=== PATIENT | male | born 1995 | race Two or more races ===

== ENCOUNTER 2021-12-08 22:45 | Emergency (ER) | payer MEDICAID ==
[~2021-12-08] VITALS: Ht 177.8 cm; Wt 68.2 kg
[2021-12-09 02:38] LABS: EOSINOPHILS % (AUTO) 7.9 % (1.0-6.0); HEMATOCRIT 40.2 % (41-53); HEMOGLOBIN 13.7 g/dL (13.5-17.5); LYMPHOCYTES # (AUTO) 2.5 K/uL (1.0-4.8); LYMPHOCYTES % (AUTO) 29.5 % (22.0-44.0); MEAN CORPUSCULAR HEMOGLOBIN 29.7 pg (26.0-34.0); MEAN CORPUSCULAR HGB CONC 34.1 G/dL (31.0-37.0); MEAN CORPUSCULAR VOLUME 87 fL (80-100); MONOCYTES # (AUTO) 0.9 K/uL (0.1-1.0); NEUTROPHILS # (AUTO) 4.4 K/uL (1.8-7.7); NEUTROPHILS % (AUTO) 51.6 % (40.0-70.0); PLATELET COUNT (AUTO) 290 K/uL (150-450); RED BLOOD CELL COUNT(AUTO) 4.61 MIL/uL (4.50-5.90); RED CELL DISTRIBUTION WIDTH 13.4 % (11.5-14.5)
[2021-12-09 02:59] LABS: ANION GAP 6 mmol/L (8-16); CALCIUM, TOTAL 8.4 mg/dL (8.8-10.5); CARBON DIOXIDE 30 mmol/L (22-29); CHLORIDE 105 mmol/L (98-107); CREATININE 0.99 mg/dL (0.60-1.30); GLOMERULAR FILTR. RATE CALC > 60 mL/min (>60); GLUCOSE,RANDOM 104 mg/dL (70-110); POTASSIUM 3.3 mmol/L (3.5-5.1); SODIUM SERUM 141 mmol/L (136-145); UREA NITROGEN, BLOOD 14 mg/dL (7-18)
[2021-12-09 03:05] LABS: ALANINE AMINOTRANSFERASE 40 U/L (12-78); ALBUMIN 3.4 g/dL (3.4-5.0); ALKALINE PHOSPHATASE 114 U/L (46-116); ASPARTATE AMINOTRANSFERASE 25 U/L (15-37); BILIRUBIN,TOTAL 0.2 mg/dL (0.1-1.0); TOTAL PROTEIN, SERUM 6.5 g/dL (6.4-8.2)
[2021-12-09 03:27] VITALS: BP 110/62
== END 2021-12-09 03:36 | disposition home or self-care (01) ==
LOC: EMS 22:49
DX: M79.18 Myalgia, other site (principal); F12.90 Cannabis use, unspecified, uncomplicated; J45.909 Unspecified asthma, uncomplicated; F31.9 Bipolar disorder, unspecified; F17.210 Nicotine dependence, cigarettes, uncomplicated
CPT/HCPCS: 80053; 85025; 99283

== ENCOUNTER 2021-12-14 22:40 | Inpatient (IN) | payer MEDICAID ==
[~2021-12-14] VITALS: Ht 175.3 cm; Wt 68.0 kg
[2021-12-14 23:56] LABS: BASOPHILS % (AUTO) 0.7 % (0.0-2.0); EOSINOPHILS % (AUTO) 5.1 % (1.0-6.0); HEMATOCRIT 39.6 % (41-53); HEMOGLOBIN 13.4 g/dL (13.5-17.5); LYMPHOCYTES # (AUTO) 3.4 K/uL (1.0-4.8); LYMPHOCYTES % (AUTO) 40.3 % (22.0-44.0); MEAN CORPUSCULAR HEMOGLOBIN 29.3 pg (26.0-34.0); MEAN CORPUSCULAR HGB CONC 33.8 G/dL (31.0-37.0); MEAN CORPUSCULAR VOLUME 87 fL (80-100); MONOCYTES # (AUTO) 0.7 K/uL (0.1-1.0); MONOCYTES % (AUTO) 8.4 % (2.0-9.0); NEUTROPHILS # (AUTO) 3.9 K/uL (1.8-7.7); NEUTROPHILS % (AUTO) 45.5 % (40.0-70.0); PLATELET COUNT (AUTO) 303 K/uL (150-450); RED BLOOD CELL COUNT(AUTO) 4.58 MIL/uL (4.50-5.90); RED CELL DISTRIBUTION WIDTH 13.2 % (11.5-14.5)
[2021-12-15 00:09] LABS: ALANINE AMINOTRANSFERASE 44 U/L (12-78); ALBUMIN 3.6 g/dL (3.4-5.0); ALKALINE PHOSPHATASE 100 U/L (46-116); ANION GAP 8 mmol/L (8-16); ASPARTATE AMINOTRANSFERASE 34 U/L (15-37); BILIRUBIN,TOTAL 0.2 mg/dL (0.1-1.0); CALCIUM, TOTAL 8.6 mg/dL (8.8-10.5); CARBON DIOXIDE 30 mmol/L (22-29); CHLORIDE 104 mmol/L (98-107); CREATININE 1.01 mg/dL (0.60-1.30); GLOMERULAR FILTR. RATE CALC > 60 mL/min (>60); GLUCOSE,RANDOM 106 mg/dL (70-110); POTASSIUM 4.2 mmol/L (3.5-5.1); SODIUM SERUM 142 mmol/L (136-145); TOTAL PROTEIN, SERUM 6.8 g/dL (6.4-8.2); UREA NITROGEN, BLOOD 20 mg/dL (7-18)
[2021-12-15 00:34] LABS: ACETAMINOPHEN < 2 mcg/mL (10-30)
[2021-12-15 01:00] LABS: SALICYLATE 0.9 mg/dL (2.8-20.0)
[2021-12-15 02:16] LABS: COVID AG,FIA SOURCE NASOPHARYNGEAL
[2021-12-15 02:20] LABS: APPEARANCE,URINE CLEAR (CLEAR); BILIRUBIN,URINE NEGATIVE (NEGATIVE); GLUCOSE, URINE (UA) NEGATIVE (NEGATIVE); KETONES,URINE NEGATIVE (NEGATIVE); LEUKOCYTE ESTERASE ,URINE NEGATIVE (NEGATIVE); NITRATE,URINE NEGATIVE (NEGATIVE); OCCULT BLOOD,URINE NEGATIVE (NEGATIVE); PH,URINE 7.5 (5.0-8.0); PROTEIN,URINE NEGATIVE (NEGATIVE)
[2021-12-15 02:26] LABS: AMPHET/METH SCREEN,URINE POSITIVE (NEGATIVE); BARBITURATE SCREEN, URINE NEGATIVE (NEGATIVE); BENZODIAZEPINES SCREEN,URINE NEGATIVE (NEGATIVE); CANNABINOID SCREEN,URINE POSITIVE (NEGATIVE); COCAINE SCREEN,URINE NEGATIVE (NEGATIVE); METHADONE SCREEN, URINE NEGATIVE (NEGATIVE); OPIATE SCREEN,URINE NEGATIVE (NEGATIVE)
[2021-12-15 05:31] LABS: PHENCYCLIDINE SCREEN,URINE NEGATIVE (NEGATIVE)
[2021-12-15] MEDS ORDERED: NICOTINE 14 MG/24 HOUR PATCH TD PRN (09:45)
[2021-12-15] MEDS ORDERED: ONDANSETRON HCL 4 MG TABLET PO PRN (09:45)
[2021-12-15] MEDS ORDERED: PETROLATUM,WHITE 28 GM JELLY TP PRN (09:45)
[2021-12-15] MEDS ORDERED: GuaiFENesin/D-METHORPHAN [SUGAR-FREE] 200-20MG/10 ML SYRUP UDCUP PO PRN (09:45)
[2021-12-15] MEDS ORDERED: MAGNESIUM HYDROXIDE SUSPENSION 30 ML UDCUP PO PRN (09:45)
[2021-12-15] MEDS ORDERED: ACETAMINOPHEN 325 MG TABLET PO PRN (09:45)
[2021-12-15] MEDS ORDERED: DOCUSATE SODIUM 100 MG CAPSULE PO PRN (09:45)
[2021-12-15] MEDS ORDERED: CloNIDine HCL 0.1 MG TABLET PO PRN (09:45)
[2021-12-15] MEDS ORDERED: MAG HYDROX/AL HYDROX/SIMETH ES 30 ML SUSPENSION UDCUP PO PRN (09:45)
[2021-12-15] MEDS ORDERED: IBUPROFEN 400 MG TABLET PO PRN (09:45)
[2021-12-15] MEDS ORDERED: ALBUTEROL SULFATE HFA 90 MCG/PUFF 8 GM INHALER IH PRN (09:45)
[2021-12-15] MEDS ORDERED: LOPERAMIDE HCL 2 MG CAPSULE PO PRN (09:45)
[2021-12-16 01:33] LABS: CHOL/HDL RATIO 1.8 (4.2-7.3); CHOLESTEROL 140 mg/dL (131-200); HDL CHOLESTEROL 76 mg/dL (40-60); LDL CHOL (CALC.) 48 mg/dL (0-130); TRIGLYCERIDES 78 mg/dL (15-150)
[2021-12-16 12:26] VITALS: BP 118/69
[2021-12-16] MEDS ORDERED: PNEUMOCOCCAL VACCINE POLYVALENT 0.5 ML VIAL [PPSV23] IM. ONE (13:45)
[2021-12-16] MEDS: LORazepam 2 MG TABLET PO PRN (16:30)
[2021-12-16] MEDS: HALOPERIDOL 5 MG TABLET PO PRN (16:30)
[2021-12-17 08:10] VITALS: BP 134/72
[2021-12-17] MEDS: RisperiDONE 1 MG TABLET PO SCH ×2 (10:00→21:00)
[2021-12-17 16:24] VITALS: BP 109/66
[2021-12-18] MEDS: LORazepam 2 MG TABLET PO PRN ×2 (02:02→17:48)
[2021-12-18] MEDS: ZOLPIDEM TARTRATE 10 MG TABLET PO PRN (02:02)
[2021-12-18 02:09] VITALS: BP 105/65
[2021-12-18] MEDS: RisperiDONE 1 MG TABLET PO SCH ×3 (09:00→20:26)
[2021-12-18 10:21] VITALS: BP 169/75
[2021-12-18] MEDS: HALOPERIDOL 5 MG TABLET PO PRN (17:48)
[2021-12-18 17:57] VITALS: BP 155/76
[2021-12-19 08:30] VITALS: BP 150/79
[2021-12-19] MEDS: RisperiDONE 1 MG TABLET PO SCH ×2 (09:00→21:00)
[2021-12-19 15:54] LABS: APPEARANCE,URINE CLEAR (CLEAR); BILIRUBIN,URINE NEGATIVE (NEGATIVE); GLUCOSE, URINE (UA) NEGATIVE (NEGATIVE); KETONES,URINE NEGATIVE (NEGATIVE); LEUKOCYTE ESTERASE ,URINE NEGATIVE (NEGATIVE); NITRATE,URINE NEGATIVE (NEGATIVE); OCCULT BLOOD,URINE NEGATIVE (NEGATIVE); PH,URINE 7.5 (5.0-8.0); PROTEIN,URINE NEGATIVE (NEGATIVE); UROBILINOGEN,URINE 0.2 mg/dL (<=1.0)
[2021-12-19 15:58] LABS: BACTERIA,URINE Rare /HPF (None Seen); RBC,URINE None Seen /HPF (0-2); WBC,URINE 0-2 /HPF (0-5)
[2021-12-19 16:00] VITALS: BP 138/76
[2021-12-19 16:01] LABS: AMPHET/METH SCREEN,URINE NEGATIVE (NEGATIVE); BARBITURATE SCREEN, URINE NEGATIVE (NEGATIVE); BENZODIAZEPINES SCREEN,URINE NEGATIVE (NEGATIVE); CANNABINOID SCREEN,URINE POSITIVE (NEGATIVE); COCAINE SCREEN,URINE NEGATIVE (NEGATIVE); METHADONE SCREEN, URINE NEGATIVE (NEGATIVE); OPIATE SCREEN,URINE NEGATIVE (NEGATIVE)
[2021-12-19 16:02] LABS: PHENCYCLIDINE SCREEN,URINE NEGATIVE (NEGATIVE)
[2021-12-19] MEDS: HALOPERIDOL 5 MG TABLET PO PRN (16:54)
[2021-12-19] MEDS: LORazepam 2 MG TABLET PO PRN (16:54)
[2021-12-20 00:15] VITALS: BP 131/66
[2021-12-20] MEDS: ZOLPIDEM TARTRATE 10 MG TABLET PO PRN (00:30)
[2021-12-20 07:06] LABS: HIV 1-2 SCREEN 4TH GEN W/RFLX Non Reactive (Non Reactive)
[2021-12-20] MEDS ORDERED: RISP1TAB98 PO (09:50)
== END 2021-12-20 12:45 | disposition home or self-care (01) | DRG 750 ==
LOC: EMS 22:40 → 3EI 12-16 02:00
PROVIDERS: ADMIT Psychiatry & Neurology Psychiatry; ATTEND Psychiatry & Neurology Psychiatry
DX: F25.0 Schizoaffective disorder, bipolar type (principal); F12.10 Cannabis abuse, uncomplicated; F15.10 Other stimulant abuse, uncomplicated; J45.909 Unspecified asthma, uncomplicated; F17.210 Nicotine dependence, cigarettes, uncomplicated; Z20.822 Contact with and (suspected) exposure to COVID-19; Z79.899 Other long term (current) drug therapy
CPT/HCPCS: 80053; 80061; 81001; 81003; 85025; 87389; 87491; 87591; 99285; G0480; G0481

== ENCOUNTER 2023-08-28 19:34 | Inpatient (IN) | payer MEDICAID ==
[~2023-08-28] VITALS: Ht 167.6 cm; Wt 79.4 kg
[~2023-08-28 19:34] MED LIST: RISP1TAB98 PO
[2023-08-28] MEDS ORDERED: TRAZ-184 PO (20:03)
[2023-08-28] MEDS ORDERED: OLAN2.5T29 PO (20:03)
[2023-08-28 20:23] LABS: BASOPHILS % (AUTO) 0.2 % (0.0-2.0); EOSINOPHILS % (AUTO) 1.9 % (1.0-6.0); HEMATOCRIT 42.7 % (41-53); HEMOGLOBIN 14.3 g/dL (13.5-17.5); LYMPHOCYTES # (AUTO) 1.5 K/uL (1.0-4.8); LYMPHOCYTES % (AUTO) 17.5 % (22.0-44.0); MEAN CORPUSCULAR HEMOGLOBIN 29.9 pg (26.0-34.0); MEAN CORPUSCULAR HGB CONC 33.5 G/dL (31.0-37.0); MEAN CORPUSCULAR VOLUME 89 fL (80-100); MONOCYTES # (AUTO) 0.7 K/uL (0.1-1.0); MONOCYTES % (AUTO) 7.9 % (2.0-9.0); NEUTROPHILS # (AUTO) 6.3 K/uL (1.8-7.7); NEUTROPHILS % (AUTO) 72.5 % (40.0-70.0); PLATELET COUNT (AUTO) 228 K/uL (150-450); RED BLOOD CELL COUNT(AUTO) 4.78 MIL/uL (4.50-5.90); RED CELL DISTRIBUTION WIDTH 12.9 % (11.5-14.5); WHITE BLOOD COUNT (AUTO) 8.7 K/uL (4.5-11.0)
[2023-08-28 20:24] LABS: COVID AG,FIA SOURCE NASAL SWAB
[2023-08-28] MEDS ORDERED: OLANZapine 5 MG TABLET PO ONE (20:30)
[2023-08-28] MEDS ORDERED: TraZODone HCL 50 MG TABLET PO ONE (20:30)
[2023-08-28 20:42] LABS: SARS-COV2 (COVID) ANTIGEN,FIA Negative (Negative)
[2023-08-28 20:43] LABS: ANION GAP 12 mmol/L (8-16); CALCIUM, TOTAL 8.8 mg/dL (8.8-10.5); CARBON DIOXIDE 25 mmol/L (22-29); CHLORIDE 104 mmol/L (98-107); GLOMERULAR FILTR. RATE CALC > 60 mL/min (>60); GLUCOSE,RANDOM 103 mg/dL (70-110); POTASSIUM 3.7 mmol/L (3.5-5.1); SODIUM SERUM 141 mmol/L (136-145); UREA NITROGEN, BLOOD 11 mg/dL (7-18)
[2023-08-28 20:49] LABS: ALANINE AMINOTRANSFERASE 42 U/L (12-78); ALKALINE PHOSPHATASE 112 U/L (46-116); ASPARTATE AMINOTRANSFERASE 72 U/L (15-37); BILIRUBIN,TOTAL 0.6 mg/dL (0.1-1.0); TOTAL PROTEIN, SERUM 7.2 g/dL (6.4-8.2)
[2023-08-28 21:33] LABS: ALCOHOL, BLOOD (SERUM) < 3 mg/dL (0-10)
[2023-08-29 20:48] VITALS: BP 124/71; PULSE 95; RESP 17; TEMP 98
[2023-08-29] MEDS ORDERED: PETROLATUM,WHITE 28 GM JELLY TP PRN (21:00)
[2023-08-29] MEDS ORDERED: MAGNESIUM HYDROXIDE SUSPENSION 30 ML UDCUP PO PRN (21:00)
[2023-08-29] MEDS ORDERED: ACETAMINOPHEN 325 MG TABLET PO PRN (21:00)
[2023-08-29] MEDS ORDERED: BENZOCAINE/MENTHOL LOZENGE PO PRN (21:00)
[2023-08-29] MEDS ORDERED: ALBUTEROL SULFATE HFA 90 MCG/PUFF 8 GM INHALER IH PRN (21:00)
[2023-08-29] MEDS ORDERED: IBUPROFEN 600 MG TABLET PO PRN (21:00)
[2023-08-29] MEDS ORDERED: LOPERAMIDE HCL 2 MG CAPSULE PO PRN (21:00)
[2023-08-29] MEDS ORDERED: ONDANSETRON HCL 4 MG TABLET PO PRN (21:00)
[2023-08-29] MEDS ORDERED: BACITRACIN 28 GM OINTMENT TP PRN (21:00)
[2023-08-29] MEDS ORDERED: CloNIDine HCL 0.1 MG TABLET PO PRN (21:00)
[2023-08-29] MEDS ORDERED: DOCUSATE SODIUM 100 MG CAPSULE PO PRN (21:00)
[2023-08-29] MEDS ORDERED: OMEPRAZOLE 20 MG CAPSULE PO PRN (21:00)
[2023-08-29] MEDS ORDERED: MAG HYDROX/AL HYDROX/SIMETH ES 30 ML SUSPENSION UDCUP PO PRN (21:00)
[2023-08-29 21:31] VITALS: BP 124/71; PULSE 95; RESP 17; TEMP 98; O2SAT 98
[2023-08-30 08:39] VITALS: BP 103/62; PULSE 60; RESP 18; TEMP 97.9; O2SAT 97
[2023-08-30] MEDS: LORazepam 2 MG TABLET PO PRN (17:30)
[2023-08-30] MEDS ORDERED: LORazepam 2 MG/ML VIAL ONE (18:05)
[2023-08-30] MEDS ORDERED: HALOPERIDOL LACTATE 5 MG/ML VIAL ONE (18:06)
[2023-08-30] MEDS ORDERED: DiphenhydrAMINE HCL 50 MG/ML VIAL ONE (18:06)
[2023-08-30] MEDS ORDERED: DiphenhydrAMINE HCL 50 MG/ML VIAL IM ONE (18:15)
[2023-08-30] MEDS ORDERED: LORazepam 2 MG/ML VIAL IM ONE (18:15)
[2023-08-30] MEDS ORDERED: HALOPERIDOL LACTATE 5 MG/ML VIAL IM ONE (18:15)
[2023-08-30 20:40] VITALS: BP 91/48; PULSE 88; RESP 17; TEMP 98; O2SAT 97
[2023-08-30] MEDS: OLANZapine 10 MG TABLET PO SCH (20:59)
[2023-08-30] MEDS: TraZODone HCL 100 MG TABLET PO SCH (20:59)
[2023-08-31 08:57] VITALS: BP 109/61; PULSE 69; RESP 20; TEMP 97.9; O2SAT 97
[2023-08-31] MEDS: LORazepam 2 MG TABLET PO PRN (19:34)
[2023-08-31 20:00] VITALS: BP 118/70; PULSE 98; RESP 18; TEMP 97.8; O2SAT 97
[2023-08-31] MEDS: TraZODone HCL 100 MG TABLET PO SCH (20:11)
[2023-08-31] MEDS: OLANZapine 10 MG TABLET PO SCH (20:11)
[2023-09-01] MEDS: LORazepam 2 MG TABLET PO PRN ×2 (08:17→16:54)
[2023-09-01 13:17] VITALS: BP 115/72; PULSE 75; RESP 17; TEMP 98; O2SAT 98
[2023-09-01] MEDS ORDERED: DiphenhydrAMINE HCL 50 MG/ML VIAL ONE (18:16)
[2023-09-01] MEDS ORDERED: HALOPERIDOL LACTATE 5 MG/ML VIAL ONE (18:16)
[2023-09-01] MEDS ORDERED: LORazepam 2 MG/ML VIAL ONE (18:16)
[2023-09-01] MEDS ORDERED: LORazepam 2 MG/ML VIAL IM ONE (18:30)
[2023-09-01] MEDS ORDERED: HALOPERIDOL LACTATE 5 MG/ML VIAL IM ONE (18:30)
[2023-09-01] MEDS ORDERED: DiphenhydrAMINE HCL 50 MG/ML VIAL IM ONE (18:30)
[2023-09-01 20:11] VITALS: BP 118/70; PULSE 110; RESP 18; TEMP 98.2; O2SAT 98
[2023-09-01] MEDS: OLANZapine 10 MG TABLET PO SCH (20:26)
[2023-09-01] MEDS: TraZODone HCL 100 MG TABLET PO SCH (20:26)
[2023-09-01] MEDS: ZOLPIDEM TARTRATE 10 MG TABLET PO PRN (20:26)
[2023-09-02 08:39] VITALS: BP 100/60; PULSE 71; RESP 17; TEMP 97.7; O2SAT 97
[2023-09-02] MEDS: OLANZapine 10 MG TABLET PO SCH (20:00)
[2023-09-02] MEDS: TraZODone HCL 100 MG TABLET PO SCH (20:00)
[2023-09-02 20:19] VITALS: BP 123/66; PULSE 90; RESP 18; TEMP 98.2; O2SAT 98
[2023-09-03] MEDS: LORazepam 2 MG TABLET PO PRN ×3 (05:50→18:11)
[2023-09-03 14:33] VITALS: BP 92/43; PULSE 74; RESP 17; TEMP 97.4; O2SAT 95
[2023-09-03] MEDS: HALOPERIDOL 5 MG TABLET PO PRN (18:11)
[2023-09-03] MEDS ORDERED: DiphenhydrAMINE HCL 50 MG/ML VIAL ONE (18:22)
[2023-09-03] MEDS ORDERED: LORazepam 2 MG/ML VIAL ONE (18:22)
[2023-09-03] MEDS ORDERED: HALOPERIDOL LACTATE 5 MG/ML VIAL ONE (18:22)
[2023-09-03] MEDS ORDERED: LORazepam 2 MG/ML VIAL IM ONE (18:45)
[2023-09-03] MEDS ORDERED: HALOPERIDOL LACTATE 5 MG/ML VIAL IM ONE (18:45)
[2023-09-03] MEDS ORDERED: DiphenhydrAMINE HCL 50 MG/ML VIAL IM ONE (18:45)
[2023-09-03] MEDS: OLANZapine 10 MG TABLET PO SCH (20:42)
[2023-09-03] MEDS: TraZODone HCL 100 MG TABLET PO SCH (20:42)
[2023-09-03 22:43] VITALS: RESP 18; TEMP 98
[2023-09-04] MEDS: LORazepam 2 MG TABLET PO PRN ×3 (10:25→21:03)
[2023-09-04] MEDS: HALOPERIDOL 5 MG TABLET PO PRN ×2 (10:25→14:49)
[2023-09-04 11:11] VITALS: RESP 18
[2023-09-04] MEDS: ZOLPIDEM TARTRATE 10 MG TABLET PO PRN (21:03)
[2023-09-04] MEDS: TraZODone HCL 100 MG TABLET PO SCH (21:03)
[2023-09-04] MEDS: OLANZapine 10 MG TABLET PO SCH (21:03)
[2023-09-05 00:01] VITALS: RESP 18
[2023-09-05] MEDS: LORazepam 2 MG TABLET PO PRN ×2 (08:13→20:50)
[2023-09-05] MEDS: HALOPERIDOL 5 MG TABLET PO PRN (08:13)
[2023-09-05 08:41] VITALS: BP 101/55; PULSE 79; RESP 18; TEMP 97.6; O2SAT 97
[2023-09-05 20:14] VITALS: BP 104/60; PULSE 74; RESP 18; TEMP 97.6; O2SAT 97
[2023-09-05] MEDS: OLANZapine 10 MG TABLET PO SCH (20:50)
[2023-09-05] MEDS: ZOLPIDEM TARTRATE 10 MG TABLET PO PRN (20:50)
[2023-09-05] MEDS: TraZODone HCL 100 MG TABLET PO SCH (20:50)
[2023-09-06] MEDS: HALOPERIDOL 5 MG TABLET PO PRN (08:29)
[2023-09-06] MEDS: LORazepam 2 MG TABLET PO PRN (20:09)
[2023-09-06] MEDS: TraZODone HCL 100 MG TABLET PO SCH (20:09)
[2023-09-06] MEDS: OLANZapine 10 MG TABLET PO SCH (20:09)
[2023-09-06] MEDS: ZOLPIDEM TARTRATE 10 MG TABLET PO PRN (20:09)
[2023-09-06 20:12] VITALS: BP 108/62; PULSE 72; RESP 18; TEMP 97.8; O2SAT 97
[2023-09-07 08:30] VITALS: RESP 16
[2023-09-07 10:13] VITALS: RESP 18
[2023-09-07] MEDS: HALOPERIDOL 5 MG TABLET PO PRN (11:53)
[2023-09-07] MEDS: LORazepam 2 MG TABLET PO PRN (11:53)
[2023-09-07 20:00] VITALS: BP 125/75; PULSE 93; RESP 18; TEMP 97.5; O2SAT 97
[2023-09-07] MEDS: ZOLPIDEM TARTRATE 10 MG TABLET PO PRN (20:01)
[2023-09-07] MEDS: TraZODone HCL 100 MG TABLET PO SCH (20:01)
[2023-09-07] MEDS: OLANZapine 10 MG TABLET PO SCH (20:01)
[2023-09-08 08:19] VITALS: BP 106/60; PULSE 77; RESP 18; TEMP 98.7; O2SAT 96
[2023-09-08] MEDS: LORazepam 2 MG TABLET PO PRN (16:23)
[2023-09-08] MEDS: HALOPERIDOL 5 MG TABLET PO PRN (16:23)
[2023-09-08] MEDS: TraZODone HCL 100 MG TABLET PO SCH (20:39)
[2023-09-08] MEDS: OLANZapine 10 MG TABLET PO SCH (20:40)
[2023-09-08] MEDS: ZOLPIDEM TARTRATE 10 MG TABLET PO PRN (20:40)
[2023-09-08 21:03] VITALS: BP 128/69; PULSE 88; RESP 17; TEMP 97.5; O2SAT 99
[2023-09-09 08:15] VITALS: BP 100/62; PULSE 89; RESP 17; TEMP 97.6; O2SAT 96
[2023-09-09] MEDS: LORazepam 2 MG TABLET PO PRN ×3 (08:27→20:34)
[2023-09-09] MEDS: HALOPERIDOL 5 MG TABLET PO PRN ×2 (08:27→16:34)
[2023-09-09 20:12] VITALS: BP 105/64; PULSE 92; RESP 20; TEMP 97.8; O2SAT 99
[2023-09-09] MEDS: OLANZapine 10 MG TABLET PO SCH (20:33)
[2023-09-09] MEDS: ZOLPIDEM TARTRATE 10 MG TABLET PO PRN (20:33)
[2023-09-09] MEDS: TraZODone HCL 100 MG TABLET PO SCH (20:33)
[2023-09-09] MEDS ORDERED: LORazepam 2 MG/ML VIAL IM ONE (22:00)
[2023-09-09] MEDS ORDERED: DiphenhydrAMINE HCL 50 MG/ML VIAL IM ONE (22:00)
[2023-09-09] MEDS ORDERED: HALOPERIDOL LACTATE 5 MG/ML VIAL IM ONE (22:00)
[2023-09-10] MEDS: HALOPERIDOL 5 MG TABLET PO PRN (08:09)
[2023-09-10] MEDS: LORazepam 2 MG TABLET PO PRN (08:09)
[2023-09-10 08:21] VITALS: BP 100/63; PULSE 62; RESP 18; TEMP 97.6; O2SAT 98
[2023-09-10] MEDS ORDERED: OLAN10TA74 PO (14:07)
[2023-09-10] MEDS ORDERED: TRAZ-186 PO (14:07)
== END 2023-09-10 15:17 | disposition home or self-care (01) | DRG 750 ==
LOC: EMS 19:37 → B2S 08-29 15:47 → B3A 08-29 18:09
PROVIDERS: ADMIT Psychiatry & Neurology Psychiatry; ATTEND Psychiatry & Neurology Psychiatry
DX: F25.0 Schizoaffective disorder, bipolar type (principal); R45.851 Suicidal ideations; F17.210 Nicotine dependence, cigarettes, uncomplicated; J45.909 Unspecified asthma, uncomplicated; Z20.822 Contact with and (suspected) exposure to COVID-19; F15.10 Other stimulant abuse, uncomplicated; K59.00 Constipation, unspecified; F41.9 Anxiety disorder, unspecified; G47.00 Insomnia, unspecified; Z79.899 Other long term (current) drug therapy
CPT/HCPCS: 80053; 85025; 99285; G0480; J1200; J1630; J2060; J3535

== ENCOUNTER 2023-09-11 13:00 | Inpatient (IN) | payer MEDICAID, OTHER ==
[~2023-09-11] VITALS: Ht 175.3 cm; Wt 93.9 kg
[~2023-09-11 13:00] MED LIST changes: +OLAN10TA74 PO; -RISP1TAB98 PO; +TRAZ-186 PO
[2023-09-11 14:45] LABS: PH,URINE DRUG SCREEN 7.5 (5.0-8.0)
[2023-09-11 14:52] LABS: ALCOHOL, URINE DRUG SCREEN NEGATIVE (NEGATIVE); AMPHET/METH SCREEN,URINE NEGATIVE (NEGATIVE); BARBITURATE SCREEN, URINE NEGATIVE (NEGATIVE); BENZODIAZEPINES SCREEN,URINE NEGATIVE (NEGATIVE); CANNABINOID SCREEN,URINE NEGATIVE (NEGATIVE); COCAINE SCREEN,URINE NEGATIVE (NEGATIVE); METHADONE SCREEN, URINE NEGATIVE (NEGATIVE); OPIATE SCREEN,URINE NEGATIVE (NEGATIVE); PHENCYCLIDINE SCREEN,URINE NEGATIVE (NEGATIVE)
[2023-09-11 15:07] LABS: BASOPHILS % (AUTO) 0.5 % (0.0-2.0); EOSINOPHILS % (AUTO) 0.6 % (1.0-6.0); HEMATOCRIT 44.8 % (41-53); HEMOGLOBIN 15.1 g/dL (13.5-17.5); LYMPHOCYTES # (AUTO) 2.2 K/uL (1.0-4.8); LYMPHOCYTES % (AUTO) 18.4 % (22.0-44.0); MEAN CORPUSCULAR HGB CONC 33.6 G/dL (31.0-37.0); MEAN CORPUSCULAR VOLUME 89 fL (80-100); MONOCYTES # (AUTO) 0.9 K/uL (0.1-1.0); NEUTROPHILS # (AUTO) 8.5 K/uL (1.8-7.7); NEUTROPHILS % (AUTO) 72.5 % (40.0-70.0); PLATELET COUNT (AUTO) 251 K/uL (150-450); RED BLOOD CELL COUNT(AUTO) 5.02 MIL/uL (4.50-5.90); RED CELL DISTRIBUTION WIDTH 13.2 % (11.5-14.5); WHITE BLOOD COUNT (AUTO) 11.8 K/uL (4.5-11.0)
[2023-09-11 15:21] LABS: ANION GAP 8 mmol/L (8-16); CALCIUM, TOTAL 9.3 mg/dL (8.8-10.5); CARBON DIOXIDE 27 mmol/L (22-29); CHLORIDE 102 mmol/L (98-107); CREATININE 1.07 mg/dL (0.60-1.30); GLOMERULAR FILTR. RATE CALC > 60 mL/min (>60); GLUCOSE,RANDOM 107 mg/dL (70-110); POTASSIUM 3.9 mmol/L (3.5-5.1); SODIUM SERUM 137 mmol/L (136-145); UREA NITROGEN, BLOOD 10 mg/dL (7-18)
[2023-09-11 15:25] LABS: ALANINE AMINOTRANSFERASE 30 U/L (12-78); ALBUMIN 4.2 g/dL (3.4-5.0); ALKALINE PHOSPHATASE 128 U/L (46-116); ASPARTATE AMINOTRANSFERASE 41 U/L (15-37); BILIRUBIN,TOTAL 0.4 mg/dL (0.1-1.0); TOTAL PROTEIN, SERUM 7.4 g/dL (6.4-8.2)
[2023-09-11 15:44] LABS: ALCOHOL, BLOOD (SERUM) < 3 mg/dL (0-10)
[2023-09-11] MEDS ORDERED: OLANZapine 5 MG RAPDIS TABLET PO ONE (15:45)
[2023-09-11 16:50] LABS: COVID AG,FIA SOURCE NASAL SWAB
[2023-09-11 17:20] LABS: SARS-COV2 (COVID) ANTIGEN,FIA Negative (Negative)
[2023-09-11] MEDS: OLANZapine 10 MG TABLET PO SCH (21:27)
[2023-09-11] MEDS: TraZODone HCL 100 MG TABLET PO SCH (21:27)
[2023-09-11] MEDS: LORazepam 2 MG TABLET PO PRN (21:28)
[2023-09-11] MEDS: ZOLPIDEM TARTRATE 10 MG TABLET PO PRN (21:28)
[2023-09-11 22:14] VITALS: BP 122/80; PULSE 89; RESP 18; TEMP 98; O2SAT 98
[2023-09-12] MEDS ORDERED: INFLUENZA VIRUS VACCINE QVS 2023-24 (6MO+)/PF 60 MCG/0.5 ML SYRINGE IM. ONE (05:30)
[2023-09-12 08:34] VITALS: BP 102/60; PULSE 77; RESP 17; TEMP 97.6; O2SAT 97
[2023-09-12] MEDS ORDERED: MAGNESIUM HYDROXIDE SUSPENSION 30 ML UDCUP PO PRN (14:45)
[2023-09-12] MEDS ORDERED: MAG HYDROX/ALUMINUM HYD/SIMETH ES 30 ML SUSPENSION UDCUP PO PRN (14:45)
[2023-09-12] MEDS ORDERED: ONDANSETRON HCL 4 MG TABLET PO PRN (14:45)
[2023-09-12] MEDS ORDERED: ACETAMINOPHEN 325 MG TABLET PO PRN (14:45)
[2023-09-12] MEDS ORDERED: OMEPRAZOLE 20 MG CAPSULE PO PRN (14:45)
[2023-09-12] MEDS ORDERED: DOCUSATE SODIUM 100 MG CAPSULE PO PRN (14:45)
[2023-09-12] MEDS ORDERED: CloNIDine HCL 0.1 MG TABLET PO PRN (14:45)
[2023-09-12] MEDS ORDERED: LOPERAMIDE HCL 2 MG CAPSULE PO PRN (14:45)
[2023-09-12] MEDS ORDERED: ALBUTEROL SULFATE HFA 90 MCG/PUFF 8 GM INHALER IH PRN (14:45)
[2023-09-12] MEDS ORDERED: IBUPROFEN 600 MG TABLET PO PRN (14:45)
[2023-09-12] MEDS ORDERED: PETROLATUM,WHITE 28 GM JELLY TP PRN (14:45)
[2023-09-12] MEDS ORDERED: BACITRACIN 28 GM OINTMENT TP PRN (14:45)
[2023-09-12] MEDS ORDERED: BENZOCAINE/MENTHOL LOZENGE PO PRN (14:45)
[2023-09-12] MEDS: ZOLPIDEM TARTRATE 10 MG TABLET PO PRN (20:54)
[2023-09-12] MEDS: OLANZapine 10 MG TABLET PO SCH (20:54)
[2023-09-12] MEDS: TraZODone HCL 100 MG TABLET PO SCH (20:54)
[2023-09-12] MEDS: LORazepam 2 MG TABLET PO PRN (20:55)
[2023-09-12 21:09] VITALS: BP 125/78; PULSE 80; RESP 18; TEMP 97.4; O2SAT 95
[2023-09-13] MEDS: LORazepam 2 MG TABLET PO PRN ×2 (08:19→17:51)
[2023-09-13] MEDS: HALOPERIDOL 5 MG TABLET PO PRN ×2 (08:19→17:51)
[2023-09-13 08:25] VITALS: BP 110/64; PULSE 85; RESP 17; TEMP 98; O2SAT 97
[2023-09-13 20:01] VITALS: BP 129/80; PULSE 90; RESP 18; TEMP 97.8
[2023-09-13] MEDS: OLANZapine 10 MG TABLET PO SCH (20:28)
[2023-09-13] MEDS: TraZODone HCL 100 MG TABLET PO SCH (20:28)
[2023-09-14 08:02] VITALS: BP 110/63; PULSE 60; RESP 17; TEMP 97.6; O2SAT 96
[2023-09-14] MEDS: LORazepam 2 MG TABLET PO PRN ×2 (08:08→20:35)
[2023-09-14] MEDS: HALOPERIDOL 5 MG TABLET PO PRN ×2 (08:08→20:33)
[2023-09-14] MEDS: OLANZapine 10 MG TABLET PO SCH (20:33)
[2023-09-14] MEDS: TraZODone HCL 100 MG TABLET PO SCH (20:33)
[2023-09-14] MEDS: ZOLPIDEM TARTRATE 10 MG TABLET PO PRN (20:34)
[2023-09-15 03:13] VITALS: BP 122/72; PULSE 95; RESP 18; TEMP 97.8; O2SAT 98
[2023-09-15] MEDS: LORazepam 2 MG TABLET PO PRN ×3 (08:16→20:16)
[2023-09-15] MEDS: HALOPERIDOL 5 MG TABLET PO PRN ×2 (08:16→20:15)
[2023-09-15 09:47] VITALS: BP 124/77; PULSE 90; RESP 18; TEMP 98; O2SAT 97
[2023-09-15] MEDS ORDERED: LORazepam 2 MG/ML VIAL ONE (15:21)
[2023-09-15] MEDS ORDERED: HALOPERIDOL LACTATE 5 MG/ML VIAL IM ONE (15:30)
[2023-09-15] MEDS ORDERED: DiphenhydrAMINE HCL 50 MG/ML VIAL IM ONE (15:30)
[2023-09-15] MEDS ORDERED: LORazepam 2 MG/ML VIAL IM ONE (15:30)
[2023-09-15] MEDS: TraZODone HCL 100 MG TABLET PO SCH (20:15)
[2023-09-15] MEDS: OLANZapine 10 MG TABLET PO SCH (20:15)
[2023-09-15] MEDS: ZOLPIDEM TARTRATE 10 MG TABLET PO PRN (20:16)
[2023-09-15 20:52] VITALS: BP 111/63; PULSE 90; RESP 18; TEMP 97.7; O2SAT 98
[2023-09-16] MEDS: HALOPERIDOL 5 MG TABLET PO PRN ×3 (08:10→20:31)
[2023-09-16] MEDS: LORazepam 2 MG TABLET PO PRN ×3 (08:10→20:31)
[2023-09-16 08:52] VITALS: BP 106/58; PULSE 60; RESP 17; TEMP 98.1; O2SAT 96
[2023-09-16] MEDS: OLANZapine 10 MG TABLET PO SCH (20:25)
[2023-09-16] MEDS: TraZODone HCL 100 MG TABLET PO SCH (20:26)
[2023-09-16] MEDS: ZOLPIDEM TARTRATE 10 MG TABLET PO PRN (20:26)
[2023-09-16 21:32] VITALS: BP 114/72; PULSE 85; RESP 18; TEMP 97.8; O2SAT 99
[2023-09-17 14:30] VITALS: BP 123/70; PULSE 85; RESP 17; TEMP 98.5; O2SAT 98
[2023-09-17] MEDS: OLANZapine 10 MG TABLET PO SCH (20:04)
[2023-09-17] MEDS: TraZODone HCL 100 MG TABLET PO SCH (20:04)
[2023-09-17 20:42] VITALS: BP 105/71; PULSE 85; RESP 18; TEMP 97.8; O2SAT 98
[2023-09-18] MEDS: LORazepam 2 MG TABLET PO PRN ×2 (08:17→20:32)
[2023-09-18] MEDS: HALOPERIDOL 5 MG TABLET PO PRN ×2 (08:17→20:32)
[2023-09-18 08:27] VITALS: BP 106/60; PULSE 79; RESP 17; TEMP 98; O2SAT 98
[2023-09-18 20:12] VITALS: BP 110/68; PULSE 89; RESP 28; TEMP 97.8; O2SAT 97
[2023-09-18] MEDS: ZOLPIDEM TARTRATE 10 MG TABLET PO PRN (20:32)
[2023-09-18] MEDS: OLANZapine 10 MG TABLET PO SCH (20:32)
[2023-09-18] MEDS: TraZODone HCL 100 MG TABLET PO SCH (20:32)
[2023-09-19 08:18] VITALS: BP 101/60; PULSE 61; RESP 17; TEMP 97.3; O2SAT 96
[2023-09-19] MEDS: HALOPERIDOL 5 MG TABLET PO PRN ×2 (12:19→20:16)
[2023-09-19] MEDS: LORazepam 2 MG TABLET PO PRN ×2 (12:19→20:16)
[2023-09-19] MEDS: OLANZapine 10 MG TABLET PO SCH (20:16)
[2023-09-19] MEDS: ZOLPIDEM TARTRATE 10 MG TABLET PO PRN (20:16)
[2023-09-19] MEDS: TraZODone HCL 100 MG TABLET PO SCH (20:16)
[2023-09-19 20:20] VITALS: BP 112/68; PULSE 94; RESP 20; TEMP 97.8; O2SAT 100
[2023-09-20 08:20] VITALS: RESP 18
[2023-09-20] MEDS: HALOPERIDOL 5 MG TABLET PO PRN ×2 (10:36→20:26)
[2023-09-20] MEDS: LORazepam 2 MG TABLET PO PRN ×2 (10:36→20:26)
[2023-09-20 20:15] VITALS: BP 120/72; PULSE 107; RESP 18; TEMP 97.8; O2SAT 97
[2023-09-20] MEDS: TraZODone HCL 100 MG TABLET PO SCH (20:26)
[2023-09-20] MEDS: ZOLPIDEM TARTRATE 10 MG TABLET PO PRN (20:26)
[2023-09-20] MEDS: OLANZapine 10 MG TABLET PO SCH (20:26)
[2023-09-21] MEDS: LORazepam 2 MG TABLET PO PRN ×2 (08:09→20:07)
[2023-09-21] MEDS: HALOPERIDOL 5 MG TABLET PO PRN (08:09)
[2023-09-21 08:44] VITALS: BP 105/53; PULSE 68; RESP 17; TEMP 97.8; O2SAT 98
[2023-09-21] MEDS: ZOLPIDEM TARTRATE 10 MG TABLET PO PRN (20:07)
[2023-09-21] MEDS: TraZODone HCL 100 MG TABLET PO SCH (20:07)
[2023-09-21] MEDS: OLANZapine 10 MG TABLET PO SCH (20:07)
[2023-09-21 20:40] VITALS: BP 110/71; PULSE 102; RESP 17; TEMP 98; O2SAT 97
[2023-09-22 18:27] VITALS: BP 118/76; PULSE 98; RESP 18; TEMP 98.2; O2SAT 98
[2023-09-22 20:12] VITALS: BP 115/62; PULSE 62; RESP 18; TEMP 97.7; O2SAT 98
[2023-09-22] MEDS: OLANZapine 10 MG TABLET PO SCH (21:06)
[2023-09-22] MEDS: LORazepam 2 MG TABLET PO PRN (21:07)
[2023-09-22] MEDS: TraZODone HCL 100 MG TABLET PO SCH (21:07)
[2023-09-22] MEDS: ZOLPIDEM TARTRATE 10 MG TABLET PO PRN (21:07)
[2023-09-23] MEDS: LORazepam 2 MG TABLET PO PRN ×2 (08:34→20:14)
[2023-09-23] MEDS: HALOPERIDOL 5 MG TABLET PO PRN ×2 (08:34→20:14)
[2023-09-23 08:37] VITALS: BP 108/54; PULSE 70; RESP 17; TEMP 97.3; O2SAT 96
[2023-09-23 20:07] VITALS: BP 130/66; PULSE 86; RESP 20; TEMP 97.8; O2SAT 98
[2023-09-23] MEDS: TraZODone HCL 100 MG TABLET PO SCH (20:13)
[2023-09-23] MEDS: ZOLPIDEM TARTRATE 10 MG TABLET PO PRN (20:14)
[2023-09-23] MEDS: OLANZapine 10 MG TABLET PO SCH (20:14)
[2023-09-24 08:38] VITALS: BP 106/60; PULSE 79; RESP 17; TEMP 97.8; O2SAT 97
[2023-09-24] MEDS: LORazepam 2 MG TABLET PO PRN (12:13)
[2023-09-24] MEDS: HALOPERIDOL 5 MG TABLET PO PRN (12:13)
[2023-09-24] MEDS: ZOLPIDEM TARTRATE 10 MG TABLET PO PRN (20:07)
[2023-09-24] MEDS: TraZODone HCL 100 MG TABLET PO SCH (20:07)
[2023-09-24] MEDS: OLANZapine 10 MG TABLET PO SCH (20:07)
[2023-09-24 20:08] VITALS: BP 118/72; PULSE 80; RESP 18; TEMP 97.9; O2SAT 98
[2023-09-25 08:13] VITALS: RESP 18
[2023-09-25] MEDS: LORazepam 2 MG TABLET PO PRN ×2 (17:28→21:34)
[2023-09-25] MEDS: HALOPERIDOL 5 MG TABLET PO PRN (17:29)
[2023-09-25 20:03] VITALS: BP 128/65; PULSE 76; RESP 18; TEMP 97.8; O2SAT 96
[2023-09-25] MEDS: OLANZapine 10 MG TABLET PO SCH (21:01)
[2023-09-25] MEDS: TraZODone HCL 100 MG TABLET PO SCH (21:01)
[2023-09-25] MEDS: ZOLPIDEM TARTRATE 10 MG TABLET PO PRN (21:01)
[2023-09-26 07:58] VITALS: BP 107/60; PULSE 66; RESP 18; TEMP 97.8; O2SAT 96
[2023-09-26 08:05] VITALS: BP 107/60; PULSE 66; RESP 18; TEMP 97.8; O2SAT 96
[2023-09-26 20:02] VITALS: BP 110/69; PULSE 102; RESP 18; TEMP 97.7; O2SAT 100
[2023-09-26] MEDS: ZOLPIDEM TARTRATE 10 MG TABLET PO PRN (20:14)
[2023-09-26] MEDS: HALOPERIDOL 5 MG TABLET PO PRN (20:14)
[2023-09-26] MEDS: TraZODone HCL 100 MG TABLET PO SCH (20:14)
[2023-09-26] MEDS: OLANZapine 10 MG TABLET PO SCH (20:14)
[2023-09-26] MEDS: LORazepam 2 MG TABLET PO PRN (20:14)
[2023-09-27 08:08] VITALS: BP 106/55; PULSE 67; RESP 17; TEMP 97.7; O2SAT 98
[2023-09-27] MEDS: OLANZapine 10 MG TABLET PO SCH (20:05)
[2023-09-27] MEDS: TraZODone HCL 100 MG TABLET PO SCH (20:06)
[2023-09-27] MEDS: ZOLPIDEM TARTRATE 10 MG TABLET PO PRN (20:06)
[2023-09-27] MEDS: LORazepam 2 MG TABLET PO PRN (20:06)
[2023-09-27 21:14] VITALS: BP 111/60; PULSE 65; RESP 18; TEMP 97.9
[2023-09-28 08:15] VITALS: BP 112/62; PULSE 69; RESP 20; TEMP 96.9; O2SAT 99
[2023-09-28 20:05] VITALS: BP 108/62; PULSE 87; RESP 18; TEMP 98; O2SAT 97
[2023-09-28] MEDS: TraZODone HCL 100 MG TABLET PO SCH (20:29)
[2023-09-28] MEDS: LORazepam 2 MG TABLET PO PRN (20:29)
[2023-09-28] MEDS: ZOLPIDEM TARTRATE 10 MG TABLET PO PRN (20:29)
[2023-09-28] MEDS: OLANZapine 10 MG TABLET PO SCH (20:29)
[2023-09-29] MEDS: HALOPERIDOL 5 MG TABLET PO PRN (08:14)
[2023-09-29 08:49] VITALS: BP 107/74; PULSE 70; RESP 16; TEMP 97.5; O2SAT 98
[2023-09-29] MEDS: LORazepam 2 MG TABLET PO PRN (19:08)
[2023-09-29] MEDS: TraZODone HCL 100 MG TABLET PO SCH (20:41)
[2023-09-29] MEDS: ZOLPIDEM TARTRATE 10 MG TABLET PO PRN (20:41)
[2023-09-29] MEDS: OLANZapine 10 MG TABLET PO SCH (20:41)
[2023-09-29 21:14] VITALS: BP 103/69; PULSE 71; RESP 16; TEMP 97.9; O2SAT 96
[2023-09-30 08:21] VITALS: RESP 18
[2023-09-30 20:05] VITALS: BP 130/69; PULSE 104; RESP 18; TEMP 98; O2SAT 97
[2023-09-30] MEDS: OLANZapine 10 MG TABLET PO SCH (20:19)
[2023-09-30] MEDS: LORazepam 2 MG TABLET PO PRN (20:20)
[2023-09-30] MEDS: TraZODone HCL 100 MG TABLET PO SCH (20:20)
[2023-09-30] MEDS: ZOLPIDEM TARTRATE 10 MG TABLET PO PRN (20:20)
[2023-10-01] MEDS: HALOPERIDOL 5 MG TABLET PO PRN (08:18)
[2023-10-01] MEDS: LORazepam 2 MG TABLET PO PRN ×2 (08:18→20:17)
[2023-10-01 08:19] VITALS: BP 109/54; PULSE 70; RESP 17; TEMP 97.7; O2SAT 96
[2023-10-01] MEDS: TraZODone HCL 100 MG TABLET PO SCH (20:03)
[2023-10-01] MEDS: OLANZapine 10 MG TABLET PO SCH (20:03)
[2023-10-01 20:13] VITALS: BP 102/69; PULSE 110; RESP 18; TEMP 97.7; O2SAT 96
[2023-10-01] MEDS: ZOLPIDEM TARTRATE 10 MG TABLET PO PRN (20:49)
[2023-10-02 09:06] VITALS: BP 108/61; PULSE 68; RESP 17; TEMP 97.3; O2SAT 94
[2023-10-02] MEDS: TraZODone HCL 100 MG TABLET PO SCH (20:05)
[2023-10-02] MEDS: OLANZapine 10 MG TABLET PO SCH (20:05)
[2023-10-02 20:30] VITALS: BP 99/75; PULSE 92; RESP 18; TEMP 98; O2SAT 98
[2023-10-03 08:27] VITALS: BP 114/73; PULSE 82; RESP 17; TEMP 97.6; O2SAT 97
[2023-10-03] MEDS: LORazepam 2 MG TABLET PO PRN ×3 (10:29→21:07)
[2023-10-03 20:44] VITALS: BP 118/66; PULSE 108; RESP 18; TEMP 98; O2SAT 97
[2023-10-03] MEDS: TraZODone HCL 100 MG TABLET PO SCH (21:07)
[2023-10-03] MEDS: OLANZapine 10 MG TABLET PO SCH (21:07)
[2023-10-03] MEDS: ZOLPIDEM TARTRATE 10 MG TABLET PO PRN (21:07)
[2023-10-04 08:21] VITALS: BP 106/60; PULSE 69; RESP 17; TEMP 98.3; O2SAT 97
[2023-10-04] MEDS: LORazepam 2 MG TABLET PO PRN (17:28)
[2023-10-04 20:06] VITALS: BP 113/64; PULSE 107; RESP 18; TEMP 98; O2SAT 97
[2023-10-04] MEDS: TraZODone HCL 100 MG TABLET PO SCH (20:59)
[2023-10-04] MEDS: OLANZapine 10 MG TABLET PO SCH (20:59)
[2023-10-05 09:04] VITALS: BP 102/65; PULSE 82; RESP 20; TEMP 98.2; O2SAT 98
[2023-10-05 20:03] VITALS: BP 109/59; PULSE 76; RESP 20; TEMP 98.1; O2SAT 100
[2023-10-05] MEDS: TraZODone HCL 100 MG TABLET PO SCH (20:16)
[2023-10-05] MEDS: OLANZapine 10 MG TABLET PO SCH (20:16)
[2023-10-05] MEDS: LORazepam 2 MG TABLET PO PRN (20:26)
[2023-10-06 08:21] VITALS: BP 122/74; PULSE 82; RESP 16; TEMP 97.6; O2SAT 98
[2023-10-06] MEDS: LORazepam 2 MG TABLET PO PRN (19:59)
[2023-10-06 20:02] VITALS: BP 109/65; PULSE 90; RESP 20; TEMP 98.2; O2SAT 97
[2023-10-06] MEDS: ZOLPIDEM TARTRATE 10 MG TABLET PO PRN (20:20)
[2023-10-06] MEDS: OLANZapine 10 MG TABLET PO SCH (20:20)
[2023-10-06] MEDS: TraZODone HCL 100 MG TABLET PO SCH (20:21)
[2023-10-07 08:18] VITALS: BP 111/57; PULSE 70; RESP 17; TEMP 97.8; O2SAT 97
[2023-10-07] MEDS: LORazepam 2 MG TABLET PO PRN (17:52)
[2023-10-07 20:08] VITALS: BP 110/62; PULSE 70; RESP 18; TEMP 97.6; O2SAT 96
[2023-10-07] MEDS: TraZODone HCL 100 MG TABLET PO SCH (20:13)
[2023-10-07] MEDS: OLANZapine 10 MG TABLET PO SCH (20:13)
[2023-10-08 08:16] VITALS: BP 123/77; PULSE 100; RESP 18; TEMP 97.3; O2SAT 99
[2023-10-08] MEDS: HALOPERIDOL 5 MG TABLET PO PRN (10:13)
[2023-10-08] MEDS: LORazepam 2 MG TABLET PO PRN (10:13)
[2023-10-08] MEDS: TraZODone HCL 100 MG TABLET PO SCH (20:01)
[2023-10-08] MEDS: OLANZapine 10 MG TABLET PO SCH (20:01)
[2023-10-08 20:05] VITALS: BP 126/78; PULSE 101; RESP 18; TEMP 97.8; O2SAT 98
[2023-10-09 08:05] VITALS: BP 112/60; PULSE 72; RESP 18; TEMP 97.7
[2023-10-09 20:13] VITALS: BP 125/68; PULSE 97; RESP 18; TEMP 98.2; O2SAT 98
[2023-10-09] MEDS: TraZODone HCL 100 MG TABLET PO SCH (20:51)
[2023-10-09] MEDS: OLANZapine 10 MG TABLET PO SCH (20:51)
[2023-10-10 08:08] VITALS: BP 111/60; PULSE 72; RESP 17; TEMP 97.8; O2SAT 97
[2023-10-10 20:04] VITALS: BP 114/62; PULSE 68; RESP 18; TEMP 97.7; O2SAT 97
[2023-10-10] MEDS: TraZODone HCL 100 MG TABLET PO SCH (20:20)
[2023-10-10] MEDS: OLANZapine 10 MG TABLET PO SCH (20:20)
[2023-10-11 08:12] VITALS: BP 100/60; PULSE 100; RESP 19; TEMP 98; O2SAT 97
[2023-10-11] MEDS: OLANZapine 10 MG TABLET PO SCH (20:11)
[2023-10-11] MEDS: TraZODone HCL 100 MG TABLET PO SCH (20:11)
[2023-10-12 00:27] VITALS: BP 129/80; PULSE 88; RESP 18; TEMP 97.9; O2SAT 97
[2023-10-12 08:11] VITALS: BP 113/60; PULSE 66; RESP 17; TEMP 97.8; O2SAT 97
[2023-10-12 20:06] VITALS: BP 110/62; PULSE 100; RESP 18; TEMP 97.6; O2SAT 97
[2023-10-12] MEDS: LORazepam 2 MG TABLET PO PRN (20:22)
[2023-10-12] MEDS: OLANZapine 10 MG TABLET PO SCH (20:22)
[2023-10-12] MEDS: TraZODone HCL 100 MG TABLET PO SCH (20:22)
[2023-10-13 08:08] VITALS: BP 103/81; PULSE 96; RESP 17; TEMP 97.5; O2SAT 98
[2023-10-13] MEDS: LORazepam 2 MG TABLET PO PRN (16:56)
[2023-10-13 20:34] VITALS: BP 115/75; PULSE 89; RESP 18; TEMP 97.7
[2023-10-13] MEDS: OLANZapine 10 MG TABLET PO SCH (20:47)
[2023-10-13] MEDS: TraZODone HCL 100 MG TABLET PO SCH (20:47)
[2023-10-13] MEDS: ZOLPIDEM TARTRATE 10 MG TABLET PO PRN (20:47)
[2023-10-14 08:29] VITALS: BP 119/63; PULSE 67; RESP 17; TEMP 98; O2SAT 96
[2023-10-14] MEDS: LORazepam 2 MG TABLET PO PRN (16:59)
[2023-10-14] MEDS: ZOLPIDEM TARTRATE 10 MG TABLET PO PRN (20:03)
[2023-10-14] MEDS: OLANZapine 10 MG TABLET PO SCH (20:03)
[2023-10-14 20:16] VITALS: BP 122/77; PULSE 105; RESP 19; TEMP 97.7; O2SAT 98
[2023-10-15 14:42] VITALS: BP 128/74; PULSE 95; RESP 18; TEMP 98; O2SAT 99
[2023-10-15 20:07] VITALS: BP 121/74; PULSE 101; RESP 20; TEMP 97.8; O2SAT 98
[2023-10-15] MEDS: OLANZapine 10 MG TABLET PO SCH (20:21)
[2023-10-15] MEDS: TraZODone HCL 100 MG TABLET PO SCH ×2 (20:21→21:06)
[2023-10-16 08:28] VITALS: BP 106/63; PULSE 63; RESP 17; TEMP 98.5; O2SAT 97
[2023-10-16] MEDS: OLANZapine 10 MG TABLET PO SCH (20:09)
[2023-10-16] MEDS: TraZODone HCL 100 MG TABLET PO SCH (20:10)
[2023-10-16 21:18] VITALS: BP 118/72; PULSE 83; RESP 18; TEMP 97.8; O2SAT 98
[2023-10-17 08:06] VITALS: BP 106/60; PULSE 60; RESP 18; TEMP 97.3; O2SAT 97
[2023-10-17 20:09] VITALS: BP 118/64; PULSE 90; RESP 18; TEMP 97.8; O2SAT 97
[2023-10-17] MEDS: OLANZapine 10 MG TABLET PO SCH (20:44)
[2023-10-17] MEDS: TraZODone HCL 100 MG TABLET PO SCH (20:44)
[2023-10-18 08:31] VITALS: BP 108/73; PULSE 100; RESP 17; TEMP 97.7; O2SAT 98
[2023-10-18] MEDS ORDERED: OLAN2.5T3 PO ×2 (09:52→09:55)
== END 2023-10-18 10:00 | disposition home or self-care (01) | DRG 750 ==
LOC: EMS 13:00 → B3A 17:06
PROVIDERS: ADMIT Psychiatry & Neurology Psychiatry; ATTEND Psychiatry & Neurology Psychiatry
DX: F25.0 Schizoaffective disorder, bipolar type (principal); R45.851 Suicidal ideations; F10.90 Alcohol use, unspecified, uncomplicated; F41.9 Anxiety disorder, unspecified; G47.00 Insomnia, unspecified; F15.10 Other stimulant abuse, uncomplicated; Z20.822 Contact with and (suspected) exposure to COVID-19; K59.00 Constipation, unspecified; J45.909 Unspecified asthma, uncomplicated; Z87.891 Personal history of nicotine dependence
CPT/HCPCS: 80053; 80307; 85025; 87081; 99285; G0480; J1200; J1630; J2060

== ENCOUNTER 2024-07-06 13:11 | Inpatient (IN) | payer MEDICAID ==
[~2024-07-06] VITALS: Ht 177.8 cm; Wt 83.0 kg
[~2024-07-06 13:11] MED LIST changes: -OLAN10TA74 PO; +OLAN2.5T3 PO
[2024-07-06] MEDS ORDERED: ZOLPIDEM TARTRATE 10 MG TABLET PO PRN (13:45)
[2024-07-06 14:22] LABS: BASOPHILS % (AUTO) 0.5 % (0.0-2.0); EOSINOPHILS % (AUTO) 0.8 % (1.0-6.0); HEMATOCRIT 47.5 % (41-53); HEMOGLOBIN 15.7 g/dL (13.5-17.5); LYMPHOCYTES # (AUTO) 1.9 K/uL (1.0-4.8); LYMPHOCYTES % (AUTO) 17.2 % (22.0-44.0); MEAN CORPUSCULAR HEMOGLOBIN 30.2 pg (26.0-34.0); MEAN CORPUSCULAR HGB CONC 33.1 G/dL (31.0-37.0); MEAN CORPUSCULAR VOLUME 91 fL (80-100); MONOCYTES # (AUTO) 0.7 K/uL (0.1-1.0); MONOCYTES % (AUTO) 6.5 % (2.0-9.0); NEUTROPHILS # (AUTO) 8.1 K/uL (1.8-7.7); PLATELET COUNT (AUTO) 315 K/uL (150-450); WHITE BLOOD COUNT (AUTO) 10.8 K/uL (4.5-11.0)
[2024-07-06 14:33] LABS: ANION GAP 11 mmol/L (8-16); CALCIUM, TOTAL 8.9 mg/dL (8.8-10.5); CARBON DIOXIDE 22 mmol/L (22-29); CHLORIDE 102 mmol/L (98-107); CREATININE 1.04 mg/dL (0.60-1.30); GLOMERULAR FILTR. RATE CALC > 60 mL/min (>60); GLUCOSE,RANDOM 89 mg/dL (70-110); POTASSIUM 3.3 mmol/L (3.5-5.1); SODIUM SERUM 135 mmol/L (136-145); UREA NITROGEN, BLOOD 6 mg/dL (7-18)
[2024-07-06 14:39] LABS: ALCOHOL, BLOOD (SERUM) 56 mg/dL (0-10)
[2024-07-06 15:13] LABS: COVID AG,FIA SOURCE NASAL SWAB
[2024-07-06 15:40] LABS: SARS-COV2 (COVID) ANTIGEN,FIA Negative (Negative)
[2024-07-06 15:42] LABS: APPEARANCE,URINE CLEAR (CLEAR); COLOR,URINE YELLOW (YELLOW); GLUCOSE, URINE (UA) NEGATIVE (NEGATIVE); LEUKOCYTE ESTERASE ,URINE NEGATIVE (NEGATIVE); NITRATE,URINE NEGATIVE (NEGATIVE); OCCULT BLOOD,URINE SMALL (NEGATIVE); PROTEIN,URINE 30-70 mg/dL (NEGATIVE); SPECIFIC GRAVITIY, URINE 1.032 (1.003-1.030)
[2024-07-06 15:54] LABS: BILIRUBIN,URINE SMALL (NEGATIVE)
[2024-07-06 16:17] LABS: ALCOHOL, URINE DRUG SCREEN POSITIVE (NEGATIVE); AMPHET/METH SCREEN,URINE NEGATIVE (NEGATIVE); BARBITURATE SCREEN, URINE NEGATIVE (NEGATIVE); BENZODIAZEPINES SCREEN,URINE NEGATIVE (NEGATIVE); CANNABINOID SCREEN,URINE NEGATIVE (NEGATIVE); COCAINE SCREEN,URINE NEGATIVE (NEGATIVE); METHADONE SCREEN, URINE NEGATIVE (NEGATIVE); OPIATE SCREEN,URINE NEGATIVE (NEGATIVE); PHENCYCLIDINE SCREEN,URINE NEGATIVE (NEGATIVE)
[2024-07-06 16:26] LABS: BACTERIA,URINE None Seen /HPF (None Seen); WBC,URINE 0-2 /HPF (0-5)
[2024-07-06] MEDS: DiphenhydrAMINE HCL 25 MG CAPSULE PO ONE (18:09)
[2024-07-06] MEDS: POTASSIUM CHLORIDE 20 MEQ ER TABLET PO ONE (18:09)
[2024-07-06] MEDS: HALOPERIDOL 5 MG TABLET PO ONE (18:09)
[2024-07-06] MEDS: LORazepam 2 MG TABLET PO ONE (18:09)
[2024-07-06] MEDS ORDERED: ALBUTEROL SULFATE HFA 90 MCG/PUFF 8 GM INHALER IH PRN (23:15)
[2024-07-07] MEDS ORDERED: GuaiFENesin/D-METHORPHAN [SUGAR-FREE] 200-20MG/10 ML SYRUP UDCUP PO PRN
[2024-07-07] MEDS ORDERED: TUBERCULIN, PURIFIED PROTEIN DERIVATIVE 5 TU/0.1 ML SYRINGE ID ONE
[2024-07-07] MEDS ORDERED: HydrOXYzine PAMOATE 50 MG CAPSULE PO PRN
[2024-07-07] MEDS ORDERED: ACETAMINOPHEN 325 MG TABLET PO PRN
[2024-07-07] MEDS ORDERED: MAGNESIUM HYDROXIDE SUSPENSION 30 ML UDCUP PO PRN
[2024-07-07] MEDS ORDERED: PROMETHAZINE HCL 25 MG TABLET PO PRN
[2024-07-07] MEDS ORDERED: LOPERAMIDE HCL 2 MG CAPSULE PO PRN
[2024-07-07 00:52] VITALS: BP 115/70; PULSE 77; RESP 18; TEMP 97.5; O2SAT 96
[2024-07-07] MEDS: FLUoxetine HCL 20 MG CAPSULE PO SCH (08:00)
[2024-07-07] MEDS: OLANZapine 5 MG RAPDIS TABLET PO PRN (08:00)
[2024-07-07] MEDS: NALTREXONE HCL 50 MG TABLET PO SCH (08:00)
[2024-07-07] MEDS: MULTIVITAMINS WITH MINERALS, THERAPEUTIC TABLET PO SCH (08:00)
[2024-07-07] MEDS: LORazepam 2 MG TABLET PO PRN (08:00)
[2024-07-07] MEDS: FOLIC ACID 1 MG TABLET PO SCH (08:00)
[2024-07-07] MEDS: THIAMINE 100 MG TABLET PO SCH (08:00)
[2024-07-07 08:04] VITALS: BP 102/65; PULSE 68; RESP 16; TEMP 97.4; O2SAT 96
[2024-07-07 09:21] LABS: ANION GAP 7 mmol/L (8-16); CALCIUM, TOTAL 8.8 mg/dL (8.8-10.5); CARBON DIOXIDE 26 mmol/L (22-29); CHLORIDE 104 mmol/L (98-107); CHOL/HDL RATIO 2.8 (4.2-7.3); CHOLESTEROL 145 mg/dL (131-200); CREATININE 0.98 mg/dL (0.60-1.30); GLOMERULAR FILTR. RATE CALC > 60 mL/min (>60); GLUCOSE,RANDOM 86 mg/dL (70-110); HDL CHOLESTEROL 52 mg/dL (40-60); LDL CHOL (CALC.) 73 mg/dL (0-130); POTASSIUM 3.7 mmol/L (3.5-5.1); SODIUM SERUM 137 mmol/L (136-145); TRIGLYCERIDES 102 mg/dL (15-150); UREA NITROGEN, BLOOD 7 mg/dL (7-18)
[2024-07-07] MEDS ORDERED: RisperiDONE ER SUSPENSION 250 MG/0.7 ML PRE-FILLED SYRINGE SQ ONE (14:45)
[2024-07-07] MEDS ORDERED: RisperiDONE 1 MG TABLET PO PRN (14:45)
[2024-07-07] MEDS: MELATONIN 5 MG TABLET PO SCH (20:27)
[2024-07-07] MEDS: OLANZapine 5 MG RAPDIS TABLET PO SCH (20:29)
[2024-07-07] MEDS: RisperiDONE 2 MG TABLET PO SCH (20:43)
[2024-07-07 23:30] VITALS: BP 112/68; PULSE 70; RESP 18; TEMP 97.6; O2SAT 97
[2024-07-08 02:07] LABS: HEPATITIS A ANTIBODY IGM Negative (Negative); HEPATITIS B CORE IGM Negative (Negative); HEPATITIS C AB (EIA) Non Reactive (Non Reactive)
[2024-07-08 08:32] VITALS: BP 109/60; PULSE 66; RESP 17; TEMP 98.3; O2SAT 98
[2024-07-08] MEDS ORDERED: MELA5TAB40 PO (14:07)
[2024-07-08] MEDS ORDERED: NALT50TA33 PO (14:07)
[2024-07-08] MEDS ORDERED: RISP4TAB94 PO (14:07)
[2024-07-08] MEDS ORDERED: FLUO-418 PO (14:07)
[2024-07-08] MEDS ORDERED: RisperiDONE 4 MG TABLET PO SCH (21:00)
[2024-09-05] MEDS ORDERED: RisperiDONE ER SUSPENSION 250 MG/0.7 ML PRE-FILLED SYRINGE SQ SCH (09:00)
== END 2024-07-08 17:10 | disposition home or self-care (01) | DRG 750 ==
LOC: EMS 13:11 → B3A 21:50
PROVIDERS: ADMIT Psychiatry & Neurology Psychiatry; ATTEND Psychiatry & Neurology Psychiatry
PROC: GZHZZZZ Group Psychotherapy (ICD-10-PCS; principal; 2024-07-06)
PROC: GZ58ZZZ Individual Psychotherapy, Cognitive-Behavioral (ICD-10-PCS; 2024-07-06)
DX: F20.9 Schizophrenia, unspecified (principal); E87.1 Hypo-osmolality and hyponatremia; R45.851 Suicidal ideations; E87.6 Hypokalemia; G47.00 Insomnia, unspecified; F41.9 Anxiety disorder, unspecified; F17.210 Nicotine dependence, cigarettes, uncomplicated; J44.89 Other specified chronic obstructive pulmonary disease; F15.90 Other stimulant use, unspecified, uncomplicated; F32.A Depression, unspecified; F10.929 Alcohol use, unspecified with intoxication, unspecified; Y90.2 Blood alcohol level of 40-59 mg/100 ml; Z20.822 Contact with and (suspected) exposure to COVID-19; Z91.148 Patient's other noncompliance with medication regimen for other reason; Z65.3 Problems related to other legal circumstances; Z63.9 Problem related to primary support group, unspecified; Z59.9 Problem related to housing and economic circumstances, unspecified; Z55.9 Problems related to education and literacy, unspecified
CPT/HCPCS: 80048; 80061; 80074; 80307; 81001; 83036; 84439; 84443; 85025; 86592; 99285; G0480

== ENCOUNTER 2024-07-09 23:06 | Inpatient (IN) | payer MEDICAID ==
[~2024-07-09] VITALS: Ht 172.7 cm; Wt 83.6 kg
[~2024-07-09 23:06] MED LIST changes: +FLUO-418 PO; +MELA5TAB40 PO; +NALT50TA33 PO; -OLAN2.5T3 PO; +RISP4TAB94 PO; -TRAZ-186 PO
[2024-07-09 23:44] LABS: EOSINOPHILS % (AUTO) 2.1 % (1.0-6.0); HEMATOCRIT 46.8 % (41-53); HEMOGLOBIN 15.5 g/dL (13.5-17.5); LYMPHOCYTES # (AUTO) 2.1 K/uL (1.0-4.8); MEAN CORPUSCULAR HEMOGLOBIN 30.3 pg (26.0-34.0); MEAN CORPUSCULAR HGB CONC 33.3 G/dL (31.0-37.0); MEAN CORPUSCULAR VOLUME 91 fL (80-100); MONOCYTES # (AUTO) 0.7 K/uL (0.1-1.0); MONOCYTES % (AUTO) 8.2 % (2.0-9.0); NEUTROPHILS # (AUTO) 5.1 K/uL (1.8-7.7); NEUTROPHILS % (AUTO) 62.7 % (40.0-70.0); PLATELET COUNT (AUTO) 260 K/uL (150-450); RED BLOOD CELL COUNT(AUTO) 5.13 MIL/uL (4.50-5.90); WHITE BLOOD COUNT (AUTO) 8.1 K/uL (4.5-11.0)
[2024-07-09 23:54] LABS: ANION GAP 6 mmol/L (8-16); CALCIUM, TOTAL 8.8 mg/dL (8.8-10.5); CARBON DIOXIDE 28 mmol/L (22-29); CHLORIDE 102 mmol/L (98-107); CREATININE 1.01 mg/dL (0.60-1.30); GLOMERULAR FILTR. RATE CALC > 60 mL/min (>60); GLUCOSE,RANDOM 90 mg/dL (70-110); POTASSIUM 3.6 mmol/L (3.5-5.1); SODIUM SERUM 136 mmol/L (136-145); UREA NITROGEN, BLOOD 8 mg/dL (7-18)
[2024-07-10] VITALS (10 sets, daily range): BP systolic 107–130; BP diastolic 53–76; PULSE 82–94; RESP 16–19; TEMP 97.7–98.9; O2SAT 96–99
[2024-07-10 00:28] LABS: COVID AG,FIA SOURCE NASAL SWAB
[2024-07-10 00:36] LABS: PH,URINE DRUG SCREEN 6.5 (5.0-8.0)
[2024-07-10 00:39] LABS: SARS-COV2 (COVID) ANTIGEN,FIA Negative (Negative)
[2024-07-10 00:42] LABS: ALCOHOL, URINE DRUG SCREEN NEGATIVE (NEGATIVE); AMPHET/METH SCREEN,URINE NEGATIVE (NEGATIVE); BARBITURATE SCREEN, URINE NEGATIVE (NEGATIVE); BENZODIAZEPINES SCREEN,URINE NEGATIVE (NEGATIVE); CANNABINOID SCREEN,URINE NEGATIVE (NEGATIVE); COCAINE SCREEN,URINE NEGATIVE (NEGATIVE); METHADONE SCREEN, URINE NEGATIVE (NEGATIVE); OPIATE SCREEN,URINE NEGATIVE (NEGATIVE); PHENCYCLIDINE SCREEN,URINE NEGATIVE (NEGATIVE)
[2024-07-10] MEDS ORDERED: HALOPERIDOL 5 MG TABLET PO PRN (01:00)
[2024-07-10] MEDS ORDERED: LORazepam 2 MG TABLET PO PRN (01:00)
[2024-07-10] MEDS ORDERED: ZOLPIDEM TARTRATE 10 MG TABLET PO PRN (01:00)
[2024-07-10 01:21] LABS: APPEARANCE,URINE CLEAR (CLEAR); BILIRUBIN,URINE NEGATIVE (NEGATIVE); COLOR,URINE LIGHT YELLOW (YELLOW); GLUCOSE, URINE (UA) NEGATIVE (NEGATIVE); KETONES,URINE NEGATIVE (NEGATIVE); LEUKOCYTE ESTERASE ,URINE NEGATIVE (NEGATIVE); NITRATE,URINE NEGATIVE (NEGATIVE); OCCULT BLOOD,URINE TRACE (NEGATIVE); PH,URINE 6.5 (5.0-8.0); PROTEIN,URINE NEGATIVE (NEGATIVE); UROBILINOGEN,URINE <=1.0 mg/dL (<=1.0)
[2024-07-10 01:31] LABS: BACTERIA,URINE None Seen /HPF (None Seen); RBC,URINE 0-2 /HPF (0-2); SQUAMOUS EPITHELIAL CELL,UR Few /LPF (None Seen); WBC,URINE None Seen /HPF (0-5)
[2024-07-10] MEDS: DiphenhydrAMINE HCL 25 MG CAPSULE PO ONE (02:56)
[2024-07-10] MEDS: LORazepam 1 MG TABLET PO ONE (02:56)
[2024-07-10] MEDS: RisperiDONE 1 MG TABLET PO ONE (02:57)
[2024-07-10] MEDS ORDERED: HydrOXYzine PAMOATE 50 MG CAPSULE PO PRN (14:30)
[2024-07-10] MEDS ORDERED: LOPERAMIDE HCL 2 MG CAPSULE PO PRN (14:30)
[2024-07-10] MEDS ORDERED: GuaiFENesin/D-METHORPHAN [SUGAR-FREE] 200-20MG/10 ML SYRUP UDCUP PO PRN (14:30)
[2024-07-10] MEDS: THIAMINE 100 MG TABLET PO SCH (17:04)
[2024-07-10] MEDS: CYANOCOBALAMIN 1,000 MCG/ML VIAL IM ONE (17:04)
[2024-07-10] MEDS: OLANZapine 5 MG RAPDIS TABLET PO SCH (20:29)
[2024-07-10] MEDS: MELATONIN 5 MG TABLET PO SCH (20:29)
[2024-07-11 02:37] VITALS: BP 120/63; PULSE 84; RESP 18; TEMP 97.6; O2SAT 98
[2024-07-11 08:45] VITALS: BP 110/64; PULSE 74; RESP 18; TEMP 98.1
[2024-07-11] MEDS: RisperiDONE 4 MG TABLET PO SCH (09:00)
[2024-07-11] MEDS: FLUoxetine HCL 20 MG CAPSULE PO SCH (09:00)
[2024-07-11] MEDS: NALTREXONE HCL 50 MG TABLET PO SCH (09:12)
[2024-07-11] MEDS: MULTIVITAMINS WITH MINERALS, THERAPEUTIC TABLET PO SCH (09:13)
[2024-07-11] MEDS: FOLIC ACID 1 MG TABLET PO SCH (09:13)
[2024-07-11] MEDS: OMEGA-3/DHA/EPA/FISH OIL 1,000 MG CAPSULE PO SCH (09:13)
[2024-07-11 20:24] VITALS: BP 100/57; PULSE 65; RESP 18; TEMP 98.6
[2024-07-12 08:00] VITALS: BP 101/54; PULSE 88; RESP 18; TEMP 97.7
[2024-07-12 22:21] VITALS: BP 126/74; PULSE 96; RESP 18; TEMP 98
[2024-07-13 09:35] VITALS: BP 111/60; PULSE 97; RESP 18; TEMP 99
[2024-07-13] MEDS ORDERED: OMEG-135 PO (17:30)
[2024-07-13] MEDS ORDERED: OLAN5TAB94 PO (17:30)
[2024-07-13 21:44] VITALS: BP 115/79; PULSE 62; RESP 18; TEMP 98.1
[2024-07-14 08:00] VITALS: BP 132/77; PULSE 60; RESP 20; TEMP 97.9
== END 2024-07-14 15:23 | disposition home or self-care (01) | DRG 750 ==
LOC: EMS 23:06 → 3EI 07-10 03:56
PROVIDERS: ADMIT Psychiatry & Neurology Psychiatry; ATTEND Psychiatry & Neurology Psychiatry
PROC: GZHZZZZ Group Psychotherapy (ICD-10-PCS; principal; 2024-07-10)
PROC: GZ58ZZZ Individual Psychotherapy, Cognitive-Behavioral (ICD-10-PCS; 2024-07-10)
PROC: GZ56ZZZ Individual Psychotherapy, Supportive (ICD-10-PCS; 2024-07-10)
DX: F25.9 Schizoaffective disorder, unspecified (principal); R45.851 Suicidal ideations; F15.10 Other stimulant abuse, uncomplicated; F12.10 Cannabis abuse, uncomplicated; F10.10 Alcohol abuse, uncomplicated; F31.9 Bipolar disorder, unspecified; F17.210 Nicotine dependence, cigarettes, uncomplicated; J44.89 Other specified chronic obstructive pulmonary disease; Z20.822 Contact with and (suspected) exposure to COVID-19; Z79.899 Other long term (current) drug therapy
CPT/HCPCS: 80048; 80307; 81001; 85025; 99285; J3420